=== PATIENT | male | born 2000 | race African-American/Black ===

== ENCOUNTER 2019-06-11 11:02 | Inpatient (IN) | payer SELFPAY ==
[2019-06-11] MEDS ORDERED: IPRATROPIUM/ALBUTEROL 0.5-2.5 MG/3 ML AMPUL NEB ONE ×2 (11:47→18:08)
[2019-06-11] MEDS ORDERED: PREDNISONE 20 MG TABLET PO ONE (11:47)
--- NOTE | 2019-06-11 11:48 | ER Document Report ---
ED Respiratory Problem - General Chief Complaint: Shortness Of Breath Stated Complaint: DIFFICULTY BREATHING Time Seen by Provider: 06/11/19 11:22 Mode of Arrival: Ambulatory Information source: Patient Notes: Patient presents complaining of asthma exacerbation for the past 5 days. Patient does report productive cough. Patient denies any fever. Patient denies any history of PE or DVT in the past. Patient states that he has been hospitalized for his asthma in the past. Patient has been using his nebulizer and inhaler without improvement of his symptoms. - HPI Patient complains to provider of: Asthma, Cough, Short of breath Onset: Other - 5 days Duration: Worse/persistent Quality of pain: Other - Tightness Context: Hx asthma. denies: Recent surgery, Smoker Chest pain/discomfort: Tightness Sputum amount: Small - Name is Similar symptoms previously: Yes Recently seen / treated by doctor: No - Related Data Allergies/Adverse Reactions: No Known Allergies Allergy (Unverified 06/11/19 11:38) Past Medical History - General Information source: Patient - Social History Smoking Status: Never Smoker Frequency of alcohol use: Occasional Drug Abuse: None Occupation: [employer] Lives with: Family Family History: Reviewed & Not Pertinent Patient has suicidal ideation: No Patient has homicidal ideation: No Pulmonary Medical History: Reports: Hx Asthma Past Surgical History: Reports: Hx Orthopedic Surgery - right knee, Hx Tonsillectomy Review of Systems - Review of Systems Constitutional: No symptoms reported. denies: Fever, Recent illness EENT: No symptoms reported Cardiovascular: Dyspnea Respiratory: Cough, Short of breath, Sputum, Wheezing Gastrointestinal: No symptoms reported. denies: Vomiting Genitourinary: No symptoms reported Male Genitourinary: No symptoms reported Musculoskeletal: No symptoms reported Skin: No symptoms reported Hematologic/Lymphatic: No symptoms reported Neurological/Psychological: No symptoms reported Physical Exam - Vital signs Vitals: Temp Pulse Resp BP Pulse Ox 98 F 92 18 143/68 H 95 06/11/19 11:17 06/11/19 11:17 06/11/19 11:17 06/11/19 11:17 06/11/19 11:17 - General General appearance: Appears well, Alert In distress: None - HEENT Head: Normocephalic, Atraumatic Eyes: Normal Conjunctiva: Normal Pupils: PERRL Nasal: Normal Mouth/Lips: Normal Mucous membranes: Normal Pharynx: Normal Neck: Normal, Supple. No: Lymphadenopathy - Respiratory Respiratory status: Tachypnea Chest status: Nontender Breath sounds: Nonproductive cough, Wheezing Chest palpation: Normal - Cardiovascular Rhythm: Regular. No: Tachycardia Heart sounds: S1 appreciated, S2 appreciated - Back Back: Normal, Nontender - Extremities General upper extremity: Normal inspection, Normal ROM General lower extremity: Normal inspection, Normal ROM - Neurological Neuro grossly intact: Yes Cognition: Normal Talcott Coma Scale Eye Opening: Spontaneous Talcott Coma Scale Verbal: Oriented Talcott Coma Scale Motor: Obeys Commands Maame Coma Scale Total: 15 - Psychological Associated symptoms: Normal affect, Normal mood - Skin Skin Temperature: Warm Skin Moisture: Dry Skin Color: Normal Course - Re-evaluation Re-evalutation: 06/11/19 14:13 Patient continues with diffuse bilateral wheezing. Patient ambulate in the daniels, heart rate increased to 100 and oxygen saturation remained from 93 to 96%. Patient was tachypneic while ambulating. 06/11/19 18:14 Without any improvement of symptoms after IV magnesium, patient continues with diffuse bilateral wheezing and tachypnea. Patient ambulated in hallway, heart rate 118 sat 93% on room air and patient tachypneic respiratory rate of 28. Consulted with hospitalist who agrees to evaluate patient for admission at this time. ABG was ordered and pending at this time. - Vital Signs Vital signs: Temp Pulse Resp BP Pulse Ox 98.1 F 87 22 H 127/62 H 94 06/11/19 15:46 06/11/19 15:46 06/11/19 15:46 06/11/19 15:46 06/11/19 15:46 - Laboratory Result Diagrams: 06/11/19 14:35 06/11/19 14:35 Laboratory results interpreted by me: 06/11/19 06/11/19 14:35 18:25 WBC 12.3 H Plt Count 147 L Lymph % (Auto) 8.1 L [place] % (Auto) 1.6 L Absolute Neuts (auto) 10.9 H Seg Neutrophils % 88.3 H ABG pO2 50.1 L ABG Total CO2 21.4 L ABG O2 Saturation 84.2 L Labs- Entire Visit 06/11/19 06/11/19 14:35 14:35 WBC 12.3 H RBC 4.66 Hgb 14.4 Hct 42.9 MCV 92 MCH 30.9 MCHC 33.5 RDW 13.5 Plt Count 147 L Lymph % (Auto) 8.1 L [place] % (Auto) 1.6 L Eos % (Auto) 1.8 Baso % (Auto) 0.2 Absolute Neuts (auto) 10.9 H Absolute Lymphs (auto) 1.0 Absolute Monos (auto) 0.2 Absolute Eos (auto) 0.2 Absolute Basos (auto) 0.0 Seg Neutrophils % 88.3 H Sodium 138.1 Potassium 4.3 Chloride 105 Carbon Dioxide 23 Anion Gap 10 BUN 11 Creatinine 1.04 Est GFR ( Amer) > 60 Est GFR (MDRD) Non-Af > 60 Glucose 95 Calcium 9.3 - Diagnostic Test Radiology reviewed: Image reviewed, Reports reviewed Discharge - Discharge Clinical Impression: Acute dyspnea Asthma exacerbation Qualifiers: Asthma severity: unspecified severity Asthma persistence: unspecified Qualified Code(s): J45.901 - Unspecified asthma with (acute) exacerbation Condition: Fair Disposition: ADMITTED INPATIENT Admitting Provider: Floyd (Hospitalist) Unit Admitted: [facility]
[2019-06-11] MEDS: ALBUTEROL SULFATE 0.083% NEB 2.5 MG/3 ML AMPUL NEB SCH ×2 (11:58→12:38)
--- NOTE | 2019-06-11 14:10 | RADIOLOGY REPORT (SQ) ---
EXAM DESCRIPTION: CHEST SINGLE VIEW COMPLETED DATE/TIME: 06/11/2019 12:14 pm REASON FOR STUDY: cough, sob COMPARISON: None. EXAM PARAMETERS: NUMBER OF VIEWS: One view. TECHNIQUE: Single frontal radiographic view of the chest acquired. RADIATION DOSE: NA LIMITATIONS: None. FINDINGS: LUNGS AND PLEURA: No opacities, masses or pneumothorax. No pleural effusion. MEDIASTINUM AND HILAR STRUCTURES: No masses. Contour normal. HEART AND VASCULAR STRUCTURES: Heart normal in size. Normal vasculature. BONES: No acute findings. HARDWARE: None in the chest. OTHER: No other significant finding. IMPRESSION: No focal consolidation or other evidence of acute cardiopulmonary process. TECHNICAL DOCUMENTATION: JOB ID: [id number] [employer]- All Rights Reserved Reading location - IP/workstation name: [email or web address]
[2019-06-11] MEDS ORDERED: ALBUTEROL SULFATE 0.083% NEB 2.5 MG/3 ML AMPUL NEB ONE (14:13)
[2019-06-11] MEDS: MAGNESIUM SULFATE/D5W 1 GM/100 ML RTUPB IV SCH ×2 (14:37→15:40)
[2019-06-11 15:29] LABS: ABSOLUTE EOSINOPHILS # (AUTO) 0.2 10^3/uL (0.0-0.6); ABSOLUTE MONOCYTES (AUTO) 0.2 10^3/uL (0.1-1.4); ABSOLUTE NEUT (AUTO) 10.9 10^3/uL (1.7-8.2); BASOPHILS % (AUTO) 0.2 % (0-2); EOSINOPHILS % (AUTO) 1.8 % (0-6); HEMATOCRIT 42.9 % (37.9-51.0); HEMOGLOBIN 14.4 g/dL (13.5-17.0); LYMPHOCYTES % (AUTO) 8.1 % (13-45); MEAN CORPUSCULAR HEMOGLOBIN 30.9 pg (27.0-33.4); MEAN CORPUSCULAR HGB CONC 33.5 g/dL (32.0-36.0); MEAN CORPUSCULAR VOLUME 92 fl (80-97); MONOCYTES % (AUTO) 1.6 % (3-13); PLATELET COUNT 147 10^3/uL (150-450); RED BLOOD COUNT 4.66 10^6/uL (4.35-5.55); RED CELL DISTRIBUTION WIDTH 13.5 % (11.5-14.0); SEGMENTED NEUTROPHILS % (AUTO) 88.3 % (42-78); TOTAL CELLS COUNTED % (AUTO) 100 %; WHITE BLOOD COUNT 12.3 10^3/uL (4.0-10.5)
[2019-06-11 16:15] LABS: ANION GAP 10 (5-19); BLOOD UREA NITROGEN 11 mg/dL (7-20); CALCIUM 9.3 mg/dL (8.4-10.2); CARBON DIOXIDE 23 mmol/L (22-30); CHLORIDE 105 mmol/L (98-107); GLUCOSE 95 mg/dL (75-110); POTASSIUM 4.3 mmol/L (3.6-5.0)
[2019-06-11] MEDS ORDERED: LEVALBUTEROL HCL NEB 0.63 MG/3 ML AMPUL NEB PRN (18:36)
[2019-06-11] MEDS ORDERED: MONTELUKAST SODIUM 10 MG TABLET PO ONE (18:37)
--- NOTE | 2019-06-11 18:45 | PDOC H&P ---
History of Present Illness Patient complains of: Shortness of breath and wheezing for the last 4 days History of Present Illness: MAXINE LOMAX is a 19 year old male history of bronchial asthma using albuterol at home came to the emergency room with complaints of increasing shortness of breath associated with wheezing. Albuterol inhaler inhaler is not helping at home. Denies any fever complaining of nasal congestion. Denies any cough or expectoration. Denies any chest pains. Denies any fevers. The work-up in the emergency room shows WBC count of 14,000, physical examination chest shows extensive bilateral wheezing. Medical consult was called for admission. Patient agreed to stay in the hospital for further management. Past Medical History Pulmonary Medical History: Reports: Asthma Past Surgical History Past Surgical History: Reports: Orthopedic Surgery - right knee, Tonsillectomy Social History Lives with: Family Smoking Status: Never Smoker Electronic Cigarette use?: No Hx Recreational Drug Use: No Hx Prescription Drug Abuse: No - Advance Directive Resuscitation Status: Full Code Family History Family History: Reviewed & Not Pertinent Parental Family History Reviewed: Yes - Grandparents with diabetes mellitus. Children Family History Reviewed: Yes Sibling(s) Family History Reviewed.: Yes Medication/Allergy Allergies/Adverse Reactions: No Known Allergies Allergy (Unverified 06/11/19 11:38) Review of Systems Constitutional: ABSENT: fatigue, fever(s), headache(s), weakness Eyes: ABSENT: visual disturbances Ears: ABSENT: hearing changes Nose, Mouth, and Throat: ABSENT: sore throat Cardiovascular: PRESENT: dyspnea on exertion. ABSENT: orthropnea, palpitations Respiratory: PRESENT: dyspnea Gastrointestinal: ABSENT: diarrhea, dysphagia, heartburn, hematemesis Genitourinary: ABSENT: dysuria, hematuria Musculoskeletal: ABSENT: joint swelling Neurological: ABSENT: abnormal gait, abnormal speech, confusion, dizziness, focal weakness, syncope Psychiatric: ABSENT: anxiety, depression, homidical ideation, suicidal ideation Endocrine: ABSENT: cold intolerance, heat intolerance, polydipsia, polyuria Physical Exam Vital Signs: Temp Pulse Resp BP Pulse Ox 98.1 F 87 22 H 127/62 H 94 06/11/19 15:46 06/11/19 15:46 06/11/19 15:46 06/11/19 15:46 06/11/19 15:46 Intake & Output 06/10/19 06/11/19 06/12/19 06:59 06:59 06:59 Intake Total 200 Balance 200 Weight 112 kg General appearance: PRESENT: cooperative, mild distress Head exam: PRESENT: atraumatic Eye exam: PRESENT: PERRLA Mouth exam: PRESENT: dry mucosa Teeth exam: PRESENT: poor dentation Neck exam: ABSENT: carotid bruit, JVD, lymphadenopathy, thyromegaly Respiratory exam: PRESENT: decreased breath sounds, tachypnea, wheezes Cardiovascular exam: PRESENT: tachycardia. ABSENT: systolic murmur GI/Abdominal exam: PRESENT: normal bowel sounds, soft. ABSENT: distended, guarding, mass, organolmegaly, rebound, tenderness Rectal exam: PRESENT: deferred Extremities exam: PRESENT: full ROM. ABSENT: calf tenderness, clubbing, pedal edema Neurological exam: PRESENT: alert, awake, oriented to person, oriented to place, oriented to time, oriented to situation, CN II-XII grossly intact. ABSENT: motor sensory deficit Psychiatric exam: PRESENT: appropriate affect, normal mood. ABSENT: homicidal ideation, suicidal ideation Results Laboratory Results: 06/11/19 14:35 06/11/19 14:35 06/11/19 06/11/19 14:35 14:35 WBC 12.3 H RBC 4.66 Hgb 14.4 Hct 42.9 MCV 92 MCH 30.9 MCHC 33.5 RDW 13.5 Plt Count 147 L Seg Neutrophils % 88.3 H Sodium 138.1 Potassium 4.3 Chloride 105 Carbon Dioxide 23 Anion Gap 10 BUN 11 Creatinine 1.04 Est GFR ( Amer) > 60 Glucose 95 Calcium 9.3 Impressions: Chest X-Ray 06/11/19 11:47 IMPRESSION: No focal consolidation or other evidence of acute cardiopulmonary process. Assessment and Plan - Diagnosis (1) Asthma exacerbation Qualifiers: Asthma severity: unspecified severity Asthma persistence: unspecified Qualified Code(s): J45.901 - Unspecified asthma with (acute) exacerbation Is this a current diagnosis for this admission?: Yes - Plan Summary Summary: 1. Acute asthma exacerbation She is going to be placed in IMCU ABG was requested. ABG report is pending. Patient was started on IV Solu-Medrol 40 mg every 6 hours, Xopenex nebul izations, Pulmicort nebs, Singulair. GI prophylaxis DVT prophylaxis initiated. Placed on oxygen 2 L nasal cannula. Started on IV Rocephin 2 g daily. Patient may need to stay at least 48 hours to 72 hours and he was admitted as inpatient. Was given IV magnesium in the emergency room.
[2019-06-11 18:52] LABS: ARTERIAL BLOOD BASE EXCESS -4.6 mmol/L; ARTERIAL BLOOD FIO2 ROOM AIR; ARTERIAL BLOOD H2CO3 1.11 mmol/L (1.05-1.35); ARTERIAL BLOOD HCO3 20.2 mmol/L (20-24); ARTERIAL BLOOD O2 SATURATION 84.2 % (94-98); ARTERIAL BLOOD PH 7.36 (7.35-7.45); ARTERIAL BLOOD PO2 50.1 mmHg (80-100); ARTERIAL BLOOD TOTAL CO2 21.4 mmol/L (23-27)
[2019-06-11] MEDS: METHYLPREDNISOLONE INJ 40 MG/1 ML SDV IV SCH ×2 (18:54→23:47)
[2019-06-11] MEDS: BUDESONIDE NEB 0.5 MG/2 ML AMPUL NEB SCH (19:25)
[2019-06-11 19:50] LABS: CREATINE KINASE MB 1.14 ng/mL (<4.55)
[2019-06-11 19:55] LABS: TROPONIN I < 0.012 ng/mL
[2019-06-11] MEDS: ONDANSETRON HCL INJ/PF 4 MG/2 ML SDV IV PRN (23:47)
[2019-06-11] MEDS: FAMOTIDINE 20 MG TABLET PO SCH (23:48)
[2019-06-12] MEDS: METHYLPREDNISOLONE INJ 40 MG/1 ML SDV IV SCH ×4 (00:25→17:25)
[2019-06-12] MEDS ORDERED: CEFTRIAXONE INJ 1000 MG VIAL IV ONE (01:30)
[2019-06-12] MEDS ORDERED: GUAIFENESIN SYRP 200 MG/10 ML UDC ONE (01:48)
[2019-06-12 02:07] LABS: TROPONIN I < 0.012 ng/mL
[2019-06-12 07:42] LABS: ABSOLUTE LYMPHOCYTES (AUTO) 0.8 10^3/uL (0.5-4.7); ABSOLUTE MONOCYTES (AUTO) 0.3 10^3/uL (0.1-1.4); BASOPHILS % (AUTO) 0.2 % (0-2); HEMATOCRIT 41.5 % (37.9-51.0); LYMPHOCYTES % (AUTO) 5.2 % (13-45); MEAN CORPUSCULAR HEMOGLOBIN 30.9 pg (27.0-33.4); MEAN CORPUSCULAR HGB CONC 33.8 g/dL (32.0-36.0); MEAN CORPUSCULAR VOLUME 92 fl (80-97); PLATELET COUNT 150 10^3/uL (150-450); RED BLOOD COUNT 4.54 10^6/uL (4.35-5.55); RED CELL DISTRIBUTION WIDTH 13.6 % (11.5-14.0); SEGMENTED NEUTROPHILS % (AUTO) 92.6 % (42-78); TOTAL CELLS COUNTED % (AUTO) 100 %; WHITE BLOOD COUNT 16.2 10^3/uL (4.0-10.5)
[2019-06-12 07:50] LABS: INTERNATIONAL RATION (INR) 1.06; PROTHROMBIN TIME 13.9 SEC (11.4-15.4)
[2019-06-12 08:00] LABS: ALBUMIN 4.2 g/dL (3.5-5.0); ALKALINE PHOSPHATASE 71 U/L (38-126); ANION GAP 10 (5-19); ASPARTATE AMINO TRANSFERASE 29 U/L (17-59); BILIRUBIN,DIRECT 0.2 mg/dL (0.0-0.4); BILIRUBIN,TOTAL 0.3 mg/dL (0.2-1.3); BLOOD UREA NITROGEN 11 mg/dL (7-20); CALCIUM 9.8 mg/dL (8.4-10.2); CARBON DIOXIDE 22 mmol/L (22-30); CHLORIDE 106 mmol/L (98-107); CHOLESTEROL 157.45 mg/dL (0-200); CREATINE KINASE 292 U/L (55-170); GLUCOSE 138 mg/dL (75-110); POTASSIUM 4.7 mmol/L (3.6-5.0); TOTAL PROTEIN 7.5 g/dL (6.3-8.2); TRIGLYCERIDES 38 mg/dL (<150)
[2019-06-12 08:12] LABS: DIRECT LDL 94 mg/dL (<100)
[2019-06-12 08:22] LABS: TROPONIN I < 0.012 ng/mL
[2019-06-12] MEDS: BUDESONIDE NEB 0.5 MG/2 ML AMPUL NEB SCH ×2 (08:23→20:45)
[2019-06-12] MEDS: FAMOTIDINE 20 MG TABLET PO SCH (10:24)
[2019-06-12] MEDS: ENOXAPARIN SODIUM INJ 40 MG/0.4 ML DISP.SYRIN SUBCUT SCH (10:24)
[2019-06-12] MEDS: CEFTRIAXONE 2 GM/D5W RTU 2 GM/50 ML RTUPB IV SCH (10:30)
--- NOTE | 2019-06-12 12:37 | PDOC PROGRESS REPORT ---
Subjective Progress Note for:: 06/12/19 Subjective:: The patient is resting comfortably. He has a very congested cough. He reports that he is still quite wheezy. Last exacerbation causing hospitalization was several years ago. Reason For Visit: BRONCHIAL ASTHMA Physical Exam Vital Signs: Temp Pulse Resp BP Pulse Ox 98.3 F 81 18 123/48 L 96 06/12/19 08:51 06/12/19 08:51 06/12/19 08:51 06/12/19 08:51 06/12/19 08:51 Intake & Output 06/11/19 06/12/19 06/13/19 06:59 06:59 06:59 Intake Total 500 Output Total 0 Balance 500 Weight 111.9 kg General appearance: PRESENT: cooperative, mild distress, well-developed Head exam: PRESENT: atraumatic, normocephalic Respiratory exam: PRESENT: rhonchi - Rhonchorous cough, symmetrical, wheezes. ABSENT: accessory muscle use, rales, tachypnea Cardiovascular exam: PRESENT: RRR, +S1, +S2 GI/Abdominal exam: PRESENT: normal bowel sounds, soft. ABSENT: distended, tenderness Extremities exam: ABSENT: joint swelling, pedal edema, tenderness Musculoskeletal exam: PRESENT: ambulatory, full ROM, normal inspection. ABSENT: deformity Neurological exam: PRESENT: alert, awake, oriented to person, oriented to place, oriented to time, oriented to situation, CN II-XII grossly intact Psychiatric exam: PRESENT: appropriate affect. ABSENT: agitated, anxious Results Laboratory Results: 06/12/19 07:20 06/12/19 07:20 06/11/19 06/11/19 06/11/19 14:35 14:35 18:25 WBC 12.3 H RBC 4.66 Hgb 14.4 Hct 42.9 MCV 92 MCH 30.9 MCHC 33.5 RDW 13.5 Plt Count 147 L Seg Neutrophils % 88.3 H Carbonic Acid 1.11 HCO3/H2CO3 Ratio 18:1 ABG pH 7.36 ABG pCO2 37.0 ABG pO2 50.1 L ABG HCO3 20.2 ABG O2 Saturation 84.2 L ABG Base Excess -4.6 FiO2 ROOM AIR Sodium 138.1 Potassium 4.3 Chloride 105 Carbon Dioxide 23 Anion Gap 10 BUN 11 Creatinine 1.04 Est GFR ( Amer) > 60 Glucose 95 Calcium 9.3 Magnesium Total Bilirubin AST Alkaline Phosphatase Total Protein Albumin Triglycerides Cholesterol LDL Cholesterol Direct VLDL Cholesterol HDL Cholesterol TSH 06/12/19 06/12/19 06/12/19 07:20 07:20 07:20 WBC 16.2 H RBC 4.54 Hgb 14.0 Hct 41.5 MCV 92 MCH 30.9 MCHC 33.8 RDW 13.6 Plt Count 150 Seg Neutrophils % 92.6 H Carbonic Acid HCO3/H2CO3 Ratio ABG pH ABG pCO2 ABG pO2 ABG HCO3 ABG O2 Saturation ABG Base Excess FiO2 Sodium 138.2 Potassium 4.7 Chloride 106 Carbon Dioxide 22 Anion Gap 10 BUN 11 Creatinine 0.98 Est GFR ( Amer) > 60 Glucose 138 H Calcium 9.8 Magnesium 2.1 Total Bilirubin 0.3 AST 29 Alkaline Phosphatase 71 Total Protein 7.5 Albumin 4.2 Triglycerides 38 Cholesterol 157.45 LDL Cholesterol Direct 94 VLDL Cholesterol 8.0 L HDL Cholesterol 54 TSH 0.20 L 06/11/19 06/11/19 06/12/19 19:05 19:05 01:11 Creatine Kinase 305 H 275 H CK-MB (CK-2) 1.14 Troponin I < 0.012 06/12/19 06/12/19 06/12/19 01:11 07:20 07:20 Creatine Kinase 292 H CK-MB (CK-2) 1.20 1.40 Troponin I < 0.012 < 0.012 Impressions: Chest X-Ray 06/11/19 11:47 IMPRESSION: No focal consolidation or other evidence of acute cardiopulmonary process. Assessment and Plan - Diagnosis (1) Asthma exacerbation Qualifiers: Asthma severity: severe Asthma persistence: unspecified Qualified Code(s): J45.901 - Unspecified asthma with (acute) exacerbation Is this a current diagnosis for this admission?: Yes (2) Acute respiratory failure with hypoxia Is this a current diagnosis for this admission?: Yes - Plan Summary Summary: 1. Acute asthma exacerbation She is going to be placed in IMCU ABG was requested. ABG report is pending. Patient was started on IV Solu-Medrol 40 mg every 6 hours, Xopenex nebulizations, Pulmicort nebs, Singulair. GI prophylaxis DVT prophylaxis initiated. Placed on oxygen 2 L nasal cannula. Started on IV Rocephin 2 g daily. Patient may need to stay at least 48 hours to 72 hours and he was admitted as inpatient. Was given IV magnesium in the emergency room. 06/12/2019- The patient is still quite wheezy. I will schedule his nebulizers every 6 hours with every 3 hour as needed treatments. The budesonide will stay at every 12 hours. We will continue his intravenous steroids. I have added azithromycin for possible infection. Continue to wean oxygen as tolerated. Is currently on 2 L nasal cannula. - Time Time Spent with patient: Less than 15 minutes Medications reviewed and adjusted accordingly: Yes Anticipated discharge: Home
[2019-06-12] MEDS ORDERED: LEVALBUTEROL HCL NEB 0.63 MG/3 ML AMPUL NEB PRN (12:39)
[2019-06-12] MEDS: GUAIFENESIN/D-METHORPHAN (200-20 MG) SYRUP 10 ML PO PRN ×2 (12:53→18:39)
[2019-06-12] MEDS: LEVALBUTEROL HCL NEB 1.25 MG/3 ML AMPUL NEB SCH ×2 (14:05→20:45)
[2019-06-12] MEDS: ACETAMINOPHEN 325 MG TABLET PO PRN (17:31)
[2019-06-12] MEDS ORDERED: PROMETHAZINE HCL INJ 25 MG/1 ML VIAL IV PRN (18:54)
[2019-06-12] MEDS ORDERED: AZITHROMYCIN INJ 500 MG VIAL IV PRN (18:57)
[2019-06-12] MEDS ORDERED: PANTOPRAZOLE SODIUM 40 MG VIAL IV ONE ×2 (19:00→22:00)
[2019-06-12] MEDS: AZITHROMYCIN 500 MG in DEXTROSE 5%-WATER 250 ML IV SCH (23:00)
[2019-06-12] MEDS: GUAIFENESIN 600 MG TABLET.SA PO SCH (23:01)
[2019-06-13] MEDS: LEVALBUTEROL HCL NEB 1.25 MG/3 ML AMPUL NEB SCH ×4 (02:04→19:52)
[2019-06-13] MEDS ORDERED: PANTOPRAZOLE SODIUM 40 MG PACKET.DR PO SCH ×2 (06:00→10:00)
[2019-06-13] MEDS: METHYLPREDNISOLONE INJ 40 MG/1 ML SDV IV SCH ×3 (06:43→17:51)
[2019-06-13] MEDS ORDERED: INFLUENZA QUAD (6MOS+) 2019-20 VAC 0.5 ML SYR IM ONE (08:00)
[2019-06-13] MEDS: BUDESONIDE NEB 0.5 MG/2 ML AMPUL NEB SCH ×3 (08:55→19:52)
[2019-06-13] MEDS: CEFTRIAXONE 2 GM/D5W RTU 2 GM/50 ML RTUPB IV SCH (10:00)
[2019-06-13] MEDS: ONDANSETRON HCL INJ/PF 4 MG/2 ML SDV IV PRN (10:17)
[2019-06-13] MEDS: GUAIFENESIN 600 MG TABLET.SA PO SCH ×2 (10:20→21:20)
[2019-06-13] MEDS: ACETAMINOPHEN 325 MG TABLET PO PRN ×2 (10:20→17:50)
[2019-06-13] MEDS: GUAIFENESIN/D-METHORPHAN (200-20 MG) SYRUP 10 ML PO PRN (10:21)
[2019-06-13] MEDS: ENOXAPARIN SODIUM INJ 40 MG/0.4 ML DISP.SYRIN SUBCUT SCH (10:25)
[2019-06-13] MEDS: PANTOPRAZOLE SODIUM 40 MG TABLET.DR PO SCH (11:37)
--- NOTE | 2019-06-13 12:30 | PDOC PROGRESS REPORT ---
Subjective Progress Note for:: 06/13/19 Subjective:: The patient is sitting up in bed. No audible wheezes from a distance. He had an episode of emesis last night. He reports that it was not preceded by nausea but seem to be triggered by coughing. He also reports a history of reflux. Reason For Visit: BRONCHIAL ASTHMA Physical Exam Vital Signs: Temp Pulse Resp BP Pulse Ox 97.5 F 89 14 112/37 L 99 06/13/19 03:40 06/13/19 08:55 06/13/19 08:55 06/13/19 03:40 06/13/19 08:55 Intake & Output 06/12/19 06/13/19 06/14/19 06:59 06:59 06:59 Intake Total 500 2860 Output Total 0 Balance 500 2860 Weight 111.9 kg 109.3 kg General appearance: PRESENT: no acute distress, cooperative, well-developed Head exam: PRESENT: atraumatic, normocephalic Respiratory exam: PRESENT: symmetrical, unlabored, wheezes - Still with sporadic wheezes but better than yesterday.. ABSENT: accessory muscle use, rales, rhonchi, tachypnea Cardiovascular exam: PRESENT: RRR, +S1, +S2 GI/Abdominal exam: PRESENT: normal bowel sounds, soft. ABSENT: distended, tenderness Extremities exam: ABSENT: pedal edema Musculoskeletal exam: PRESENT: ambulatory. ABSENT: deformity Neurological exam: PRESENT: alert, awake, oriented to person, oriented to place, oriented to time, oriented to situation, CN II-XII grossly intact Psychiatric exam: PRESENT: appropriate affect. ABSENT: agitated, anxious Focused psych exam: ABSENT: delusional, restlessness Results Laboratory Results: 06/12/19 07:20 06/12/19 07:20 06/11/19 06/11/19 06/12/19 19:05 19:05 01:11 Creatine Kinase 305 H 275 H CK-MB (CK-2) 1.14 Troponin I < 0.012 06/12/19 06/12/19 06/12/19 01:11 07:20 07:20 Creatine Kinase 292 H CK-MB (CK-2) 1.20 1.40 Troponin I < 0.012 < 0.012 Impressions: Chest X-Ray 06/11/19 11:47 IMPRESSION: No focal consolidation or other evidence of acute cardiopulmonary process. Assessment and Plan - Diagnosis (1) Asthma exacerbation Qualifiers: Asthma severity: severe Asthma persistence: unspecified Qualified Code(s): J45.901 - Unspecified asthma with (acute) exacerbation Is this a current diagnosis for this admission?: Yes (2) Acute respiratory failure with hypoxia Is this a current diagnosis for this admission?: Yes (3) Emesis Qualifiers: Vomiting type: unspecified Vomiting Intractability: non-intractable Nausea presence: without nausea Qualified Code(s): R11.11 - Vomiting without nausea Is this a current diagnosis for this admission?: Yes - Plan Summary Summary: 1. Acute asthma exacerbation She is going to be placed in IMCU ABG was requested. ABG report is pending. Patient was started on IV Solu-Medrol 40 mg every 6 hours, Xopenex nebulizations, Pulmicort nebs, Singulair. GI prophylaxis DVT prophylaxis initiated. Placed on oxygen 2 L nasal cannula. Started on IV Rocephin 2 g daily. Patient may need to stay at least 48 hours to 72 hours and he was admitted as inpatient. Was given IV magnesium in the emergency room. 06/12/2019- The patient is still quite wheezy. I will schedule his nebulizers every 6 hours with every 3 hour as needed treatments. The budesonide will stay at every 12 hours. We will continue his intravenous steroids. I have added azithromycin for possible infection. Continue to wean oxygen as tolerated. Is currently on 2 L nasal cannula. 06/13/2019- Is much better than yesterday. I will increase the budesonide to every 6 hours to coincide with his other scheduled nebulizers. He will stay on the steroids every 6 hours as well. Reviewed the episode of emesis last night. We know that there have been several other episodes. He reports reflux in the past. I have started proton pump inhibitor therapy. It seems to be triggered by coughing. I did encourage the patient to begin to walk around to see if he tolerates ambulation as we try and taper his oxygen. We long discussion about work. 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 I do not know that he will be able to return to work this week. He has to fly to [place] for more training. I explained that this should not be a problem. - Time Time Spent with patient: 15-24 minutes Medications reviewed and adjusted accordingly: Yes Anticipated discharge: Home
[2019-06-13] MEDS ORDERED: KETOROLAC TROMETHAMINE INJ/PF 30 MG/1 ML SDV IV PRN (12:50)
[2019-06-13] MEDS: AZITHROMYCIN 500 MG in DEXTROSE 5%-WATER 250 ML IV SCH (21:20)
[2019-06-13] MEDS ORDERED: MONTELUKAST SODIUM 10 MG TABLET PO SCH (22:00)
[2019-06-14] MEDS: METHYLPREDNISOLONE INJ 40 MG/1 ML SDV IV SCH ×4 (00:08→17:50)
[2019-06-14] MEDS: LEVALBUTEROL HCL NEB 1.25 MG/3 ML AMPUL NEB SCH ×3 (02:01→14:03)
[2019-06-14] MEDS: BUDESONIDE NEB 0.5 MG/2 ML AMPUL NEB SCH ×3 (02:02→14:04)
[2019-06-14] MEDS: PANTOPRAZOLE SODIUM 40 MG TABLET.DR PO SCH (06:30)
[2019-06-14] MEDS: CEFTRIAXONE 2 GM/D5W RTU 2 GM/50 ML RTUPB IV SCH (09:40)
[2019-06-14] MEDS: ENOXAPARIN SODIUM INJ 40 MG/0.4 ML DISP.SYRIN SUBCUT SCH (09:40)
[2019-06-14] MEDS: GUAIFENESIN 600 MG TABLET.SA PO SCH (09:40)
[2019-06-14] MEDS ORDERED: PANTOPRAZOLE SODIUM 40 MG TABLET.DR PO SCH (10:30)
--- NOTE | 2019-06-14 13:10 | PDOC DISCHARGE SUMMARY ---
Impression - Admit/DC Date/PCP Admission Date/Primary Care Provider: 06/11/19 18:41 Discharge Date: 06/14/19 - Discharge Diagnosis (1) Asthma exacerbation Is this a current diagnosis for this admission?: Yes (2) Acute respiratory failure with hypoxia Is this a current diagnosis for this admission?: Yes (3) Emesis Is this a current diagnosis for this admission?: Yes - Additional Information Resuscitation Status: Full Code Discharge Diet: Regular Discharge Activity: Activity As Tolerated Referrals: [facility] [Provider Group] - 06/21/19 3:30 pm Prescriptions: Cefuroxime Axetil [Ceftin 500 mg Tablet] 1 tab PO BID 7 Days #14 tablet Prednisone [Deltasone 5 mg Tablet] 5 mg PO ASDIR #108 tablet Montelukast Sodium [Singulair 10 mg Tablet] 10 mg PO QHS #21 tablet Budesonide/Formoterol Fumarate [Symbicort Hfa 80-4.5 Mcg Inhaler 6.9 gm] 2 puff IH BID #1 inhaler Azithromycin [Zithromax 250 mg Tablet] 250 mg PO DAILY #5 tablet Home Medications: Azithromycin [Zithromax 250 mg Tablet] 250 mg PO DAILY #5 tablet 06/14/19 Budesonide/Formoterol Fumarate [Symbicort Hfa 80-4.5 Mcg Inhaler 6.9 gm] 2 puff IH BID #1 inhaler 06/14/19 Cefuroxime Axetil [Ceftin 500 mg Tablet] 1 tab PO BID 7 Days #14 tablet 06/14/19 Guaifenesin [Mucinex Sr 600 mg Tablet.sa] 600 mg PO Q12 tablet.sa 06/14/19 Montelukast Sodium [Singulair 10 mg Tablet] 10 mg PO QHS #21 tablet 06/14/19 Prednisone [Deltasone 5 mg Tablet] 5 mg PO ASDIR #108 tablet 06/14/19 History of Present Illiness History of Present Illness: MAXINE LOMAX is a 19 year old male with history of asthma who presented with acute onset shortness of breath and acute hypoxic respiratory failure. He was referred to the hospital service for admission. Hospital Course Hospital Course: It took several days but the asthma finally came under control. It was likely triggered by bronchitis. The patient was weaned off of oxygen. Physical Exam Vital Signs: Temp Pulse Resp BP Pulse Ox 98.4 F 60 16 119/43 L 96 06/14/19 08:05 06/14/19 08:07 06/14/19 08:07 06/14/19 08:05 06/14/19 08:07 Intake & Output 06/13/19 06/14/19 06/15/19 06:59 06:59 06:59 Intake Total 2860 1126 50 Balance 2860 1126 50 Weight 109.3 kg 108.3 kg General appearance: PRESENT: no acute distress, well-developed Respiratory exam: PRESENT: symmetrical, unlabored, wheezes - Faint wheeze. ABSENT: accessory muscle use, rales, rhonchi, tachypnea Cardiovascular exam: PRESENT: RRR, +S1, +S2 GI/Abdominal exam: PRESENT: normal bowel sounds, soft. ABSENT: distended, tenderness Extremities exam: PRESENT: full ROM. ABSENT: joint swelling, pedal edema Musculoskeletal exam: PRESENT: ambulatory, full ROM, normal inspection. ABSENT: deformity Neurological exam: PRESENT: alert, awake, oriented to person, oriented to place, oriented to time, oriented to situation, CN II-XII grossly intact. ABSENT: motor sensory deficit Psychiatric exam: PRESENT: appropriate affect, normal mood. ABSENT: agitated, anxious Focused psych exam: ABSENT: delusional, restlessness Skin exam: PRESENT: dry, normal color, warm. ABSENT: rash Results Laboratory Results: WBC 16.2 10^3/uL (4.0-10.5) H 06/12/19 07:20 RBC 4.54 10^6/uL (4.35-5.55) 06/12/19 07:20 Hgb 14.0 g/dL (13.5-17.0) 06/12/19 07:20 Hct 41.5 % (37.9-51.0) 06/12/19 07:20 MCV 92 fl (80-97) 06/12/19 07:20 MCH 30.9 pg (27.0-33.4) 06/12/19 07:20 MCHC 33.8 g/dL (32.0-36.0) 06/12/19 07:20 RDW 13.6 % (11.5-14.0) 06/12/19 07:20 Plt Count 150 10^3/uL (150-450) 06/12/19 07:20 Lymph % (Auto) 5.2 % (13-45) L 06/12/19 07:20 Wirt % (Auto) 2.0 % (3-13) L 06/12/19 07:20 Eos % (Auto) 0.0 % (0-6) 06/12/19 07:20 Baso % (Auto) 0.2 % (0-2) 06/12/19 07:20 Absolute Neuts (auto) 15.0 10^3/uL (1.7-8.2) H 06/12/19 07:20 Absolute Lymphs (auto) 0.8 10^3/uL (0.5-4.7) 06/12/19 07:20 Absolute Monos (auto) 0.3 10^3/uL (0.1-1.4) 06/12/19 07:20 Absolute Eos (auto) 0.0 10^3/uL (0.0-0.6) 06/12/19 07:20 Absolute Basos (auto) 0.0 10^3/uL (0.0-0.2) 06/12/19 07:20 Seg Neutrophils % 92.6 % (42-78) H 06/12/19 07:20 PT 13.9 SEC (11.4-15.4) 06/12/19 07:30 INR 1.06 06/12/19 07:30 Carbonic Acid 1.11 mmol/L (1.05-1.35) 06/11/19 18:25 HCO3/H2CO3 Ratio 18:1 06/11/19 18:25 ABG pH 7.36 (7.35-7.45) 06/11/19 18:25 ABG pCO2 37.0 mmHg (35-45) 06/11/19 18:25 ABG pO2 50.1 mmHg (80-100) L 06/11/19 18:25 ABG HCO3 20.2 mmol/L (20-24) 06/11/19 18:25 ABG Total CO2 21.4 mmol/L (23-27) L 06/11/19 18:25 ABG O2 Saturation 84.2 % (94-98) L 06/11/19 18:25 ABG Base Excess -4.6 mmol/L 06/11/19 18:25 FiO2 ROOM AIR 06/11/19 18:25 Sodium 138.2 mmol/L (137-145) 06/12/19 07:20 Potassium 4.7 mmol/L (3.6-5.0) 06/12/19 07:20 Chloride 106 mmol/L (98-107) 06/12/19 07:20 Carbon Dioxide 22 mmol/L (22-30) 06/12/19 07:20 Anion Gap 10 (5-19) 06/12/19 07:20 BUN 11 mg/dL (7-20) 06/12/19 07:20 Creatinine 0.98 mg/dL (0.52-1.25) 06/12/19 07:20 Est GFR ( Amer) > 60 (>60) 06/12/19 07:20 Est GFR (MDRD) Non-Af > 60 (>60) 06/12/19 07:20 Glucose 138 mg/dL (75-110) H 06/12/19 07:20 Hemoglobin A1c % 5.5 % (4.7-6.0) 06/12/19 07:20 Calcium 9.8 mg/dL (8.4-10.2) 06/12/19 07:20 Magnesium 2.1 mg/dL (1.6-2.3) 06/12/19 07:20 Total Bilirubin 0.3 mg/dL (0.2-1.3) 06/12/19 07:20 Direct Bilirubin 0.2 mg/dL (0.0-0.4) 06/12/19 07:20 Neonat Total Bilirubin Not Reportable 06/12/19 07:20 Neonat Direct Bilirubin Not Reportable 06/12/19 07:20 Neonat Indirect Bili Not Reportable 06/12/19 07:20 AST 29 U/L (17-59) 06/12/19 07:20 ALT 25 U/L (<50) 06/12/19 07:20 Alkaline Phosphatase 71 U/L (38-126) 06/12/19 07:20 Creatine Kinase 292 U/L (55-170) H 06/12/19 07:20 CK-MB (CK-2) 1.40 ng/mL (<4.55) 06/12/19 07:20 Troponin I < 0.012 ng/mL 06/12/19 07:20 Total Protein 7.5 g/dL (6.3-8.2) 06/12/19 07:20 Albumin 4.2 g/dL (3.5-5.0) 06/12/19 07:20 Triglycerides 38 mg/dL (<150) 06/12/19 07:20 Cholesterol 157.45 mg/dL (0-200) 06/12/19 07:20 LDL Cholesterol Direct 94 mg/dL (<100) 06/12/19 07:20 VLDL Cholesterol 8.0 mg/dL (10-31) L 06/12/19 07:20 HDL Cholesterol 54 mg/dL (>40) 06/12/19 07:20 TSH 0.20 uIU/mL (0.47-4.68) L 06/12/19 07:20 06/11/19 06/12/19 06/12/19 19:05 01:11 07:20 CK-MB (CK-2) 1.14 1.20 1.40 Troponin I < 0.012 < 0.012 < 0.012 Impressions: Chest X-Ray 06/11/19 11:47 IMPRESSION: No focal consolidation or other evidence of acute cardiopulmonary process. Plan Health Concerns: The patient has to fly to [place] at the end of the week. His asthma is to the point that he should be stable. He will complete his antibiotics. I have prescribed a combination inhaler in addition to the prednisone taper to complete his course. He may need a combination inhaler for long-term control of his asthma. He was also placed on Singulair Plan of Treatment: As above Goals: Complete resolution of asthma Time Spent: Greater than 30 Minutes Stroke Is this a Stroke Patient?: No Acute Heart Failure - Is this a Heart Failure Patient?: No
[2019-06-14 13:52] LABS: HEMATOCRIT 41.2 % (37.9-51.0); HEMOGLOBIN 13.9 g/dL (13.5-17.0); MEAN CORPUSCULAR HEMOGLOBIN 30.9 pg (27.0-33.4); MEAN CORPUSCULAR HGB CONC 33.6 g/dL (32.0-36.0); MEAN CORPUSCULAR VOLUME 92 fl (80-97); PLATELET COUNT 150 10^3/uL (150-450); RED BLOOD COUNT 4.49 10^6/uL (4.35-5.55); RED CELL DISTRIBUTION WIDTH 13.5 % (11.5-14.0); WHITE BLOOD COUNT 17.7 10^3/uL (4.0-10.5)
[2019-06-14 14:14] LABS: ABSOLUTE LYMPHOCYTES# (MANUAL) 1.6 10^3/uL (0.5-4.7); ABSOLUTE MONOCYTES # (MANUAL) 0.4 10^3/uL (0.1-1.4); BASOPHILS % (MANUAL) 0 % (0-2); EOSINOPHILS % (MANUAL) 0 % (0-6); LYMPHOCYTES % (MANUAL) 9 % (13-45); MONOCYTES % (MANUAL) 2 % (3-13); SEGMENTED NEUTROPHILS % (MAN) 89 % (42-78); TOTAL CELLS COUNTED 100
[2019-06-14 14:15] LABS: PLATELET COMMENT ADEQUATE; POLYCHROMASIA SLIGHT; TOXIC VACUOLATION PRESENT
[2019-06-14 14:23] LABS: ANION GAP 14 (5-19); BLOOD UREA NITROGEN 16 mg/dL (7-20); CALCIUM 9.5 mg/dL (8.4-10.2); CARBON DIOXIDE 22 mmol/L (22-30); CHLORIDE 102 mmol/L (98-107); GLUCOSE 172 mg/dL (75-110); POTASSIUM 4.6 mmol/L (3.6-5.0)
[2019-06-14 17:53] VITALS: BP 148/55
== END 2019-06-14 18:19 | disposition home or self-care (01) | DRG 203 ==
LOC: ER 11:02 → EH 18:41 → 3S 21:40
PROVIDERS: ADMIT Internal Medicine; ATTEND Internal Medicine
DX: J45.51 Severe persistent asthma with (acute) exacerbation (principal); K21.9 Gastro-esophageal reflux disease without esophagitis; R11.11 Vomiting without nausea; Z79.51 Long term (current) use of inhaled steroids
CPT/HCPCS: 36415; 71045; 80048; 80053; 80061; 82550; 82553; 82803; 83036; 83735; 84443; 84484; 85025; 85610; 87070; 87205; 90686; 94640; 99285; J0456; J0696; J1650; J2405; J2550; J2920; J3475; J3490; J7060; J7512; J7614; J7620; S0164